=== PATIENT | female | born 1960 | race African-American/Black ===

== ENCOUNTER → 2016-05-31 | Outpatient (CLI) | payer OTHER, BC ==
[~2016-05-31] MED LIST: ACCOLATE10 MG PO; ALBUTEROL INH; AUGMENTIN 875875 M1 PO; BROVANA15 MCG/2 M IH; BUTALBITAL-APA1 EAC1 PO; CALCIUM +D & M1 EACH PO; CARDIZEM CD120 MG PO; CELEBREX 200 M200 M1 PO; CENTRUM MULTIV1 EACH PO; CLONAZEPAM 1 MG1 M1 PO; COMBIVENT INH; EFFEXOR XR150 MG PO; EPIPEN0.3 MG/0.3 IM; FLEXERIL PO; HYDROCHLOROTHIA25 M2 PO; KLOR-CON 1010 MEQ PO; LANOXIN 0.120.125 M2 PO; LASIX 20 MG TAB20 MG PO; LEVAQUIN 500 M500 M2 PO; NEURONTIN 300M300 M2 PO; OMEGA-31000 M1 PO; PEDIA-LAX400 MG PO; POTASSIUM20 PO; PREDNISONE 10 M10 MG PO; PREDNISONE 20 M20 M1 PO; PROTONIX40 M1 PO; PROTONIX40 M2 PO; PULMICORT1 MG/2 ML IH; SKELAXIN 800 M800 M1 PO; TESSALON PERLE100 MG PO; THEOPHYLLINE S300 M1 PO; TOPAMAX200 MG PO; TOPIRAGEN200 MG PO; TRIAMCINOLONE16.5 GM NS; ULTRAM 50MG TAB50 MG PO; VITAMIN D2000 UNIT PO; WELLBUTRIN XL150 MG PO; ZANAFLEX4 M2 PO; ZANAFLEX4 MG PO
== END ==
LOC: RAD 14:13
DX: J45.909 Unspecified asthma, uncomplicated (principal); R06.89 Other abnormalities of breathing

== ENCOUNTER → 2016-07-26 | Outpatient (CLI) | payer OTHER, BC | END | disposition home or self-care (01) | LOC: RAD 04:05 | DX: M54.16 Radiculopathy, lumbar region (principal) ==

== ENCOUNTER → 2019-11-11 | Outpatient (CLI) | payer OTHER | LOC: RAD 12:35 | PROVIDERS: ATTEND Internal Medicine Pulmonary Disease | DX: J84.10 Pulmonary fibrosis, unspecified (principal) ==

== ENCOUNTER → 2019-11-11 | Outpatient (CLI) | payer OTHER | LOC: LAB 14:42 | PROVIDERS: ATTEND Internal Medicine Pulmonary Disease | DX: Z01.812 Encounter for preprocedural laboratory examination (principal); Z20.828 Contact with and (suspected) exposure to other viral communicable diseases ==

== ENCOUNTER → 2021-04-11 | Outpatient (CLI) | payer OTHER | LOC: RAD 12:21 | PROVIDERS: ATTEND Internal Medicine Pulmonary Disease | DX: R91.8 Other nonspecific abnormal finding of lung field (principal); M51.34 Other intervertebral disc degeneration, thoracic region; J30.2 Other seasonal allergic rhinitis ==